=== PATIENT | male | born 1930 | race Caucasian/White ===

== ENCOUNTER 2019-09-25 10:55 | Observation (INO) ==
[2019-09-25] MEDS ORDERED: NS 1000 ML 1,000 ML ONE (11:08)
--- NOTE | 2019-09-25 11:08 | DR.GIBLEED ---
HPI Time Seen Time Seen by Provider: 09/25/19 11:00 Primary Care Physician Primary Care Physician: Gerald in [place] Complaints Chief Complaint Doctors Comments: Pt seen here yesterday and by PCP in [place] the day before. Diagnosed with GI bleed with stable vital signs and H&H. Scheduled for scope next week. brings him back today because multiple bloody stools through the night. Hb 14.2 on 09/23, and 13.8 on 09/24 No vomiting, no syncope. No abdominal pain. Reviewed Nurses Notes Reviewed: Yes Source History Provided: Patient and Significant Other Mode of Arrival Mode of Arrival: Ambulatory Duration Bleeding: Since Onset How lon Duration: Days Quality Vomitus: None Stools: Bright Red Blood History Of: None and Aortic Graft; denies GI Bleed and Current anticoagulant use Prehospital Care:: None Severity Severity: Moderate Number of: 4 Context Onset: Spontaneous Recent Use Of: None Associated Signs and Symptoms Associated Signs and Symptoms: Diarrhea; denies Abdominal Pain PMH PMH Past Medical History: CHF, Coronary Artery Disease, GERD, Hypertension and IN Past Surgical History: Yes Surgical History: AAA Repair, Angioplasty/Stents, CABG/Valve Surgery, Thyroidectomy and Other Family History History of Family Medical Conditions: Yes Family Medical History: Hypertension Social History Does patient currently use any type of tobacco product: No Have you used tobacco products in the last 12 months: No Does any household member use tobacco: No Do you use any recreational Drugs:: No Lives With: Significant Other Lives Where: Home infectious screening In the last 2 months have you had wt loss of >10#?: NO Have you had fever, night sweats or hemotysis?: No Have you traveled outside the country in the last 6 months?: No Isolation: Standard ROS Review of Systems Constitutional: Weakness; negative Chills, Diaphoresis and Fever Respiratoy: No Symptoms Reported; negative Short of Breath and Wheezing Cardiovascular: No Symptoms Reported; negative Chest Pain and Syncope Gastrointestinal/Abdominal: Diarrhea and Other (bloody BMs); negative Abdominal Pain and Vomiting Genitourinary: No Symptoms Reported Neurological: Weakness All Other Systems: Reviewed and Negative PE Vital Signs Vitals: Temperature 97.8 F Pulse Rate [Standing] 86 Pulse Rate [Sitting] 79 Pulse Rate [Lying] 82 Pulse Rate 78 Respiratory Rate 18 Blood Pressure [Left Arm] 108/65 Blood Pressure [Standing] 97/55 Blood Pressure [Sitting] 93/54 Blood Pressure [Lying] 89/56 Blood Pressure 103/61 O2 Sat by Pulse Oximetry 94 General Limitations: No Limitations General Appearance: Alert and In No Apparent Distress Eyes Eye exam: Normal Appearance, EOMI and Other (no pallor); negative Scleral Icterus ENT ENT Exam: Mucous Membranes Moist Respiratory Respiratory Exam: Normal Lung Sounds Bilat Cardiovascular Cardiovascular Exam: Regular Rate and Normal Rhythm Abdominal Exam Abdominal Exam: Normal Inspection, Normal Bowel Sounds and Soft; negative Tenderness and Guarding Rectal Rectal Exam: Deferred Extremities Extremities Exam: Full ROM Neurologic Neurological Exam: Alert and Oriented X3 Psychiatric Psychiatric Exam: Normal Affect and Normal Mood Skin Skin Exam: Warm, Dry and Normal Color DIFFERENTIAL DIAGNOSIS Differential Diagnosis Differential Diagnosis: AE Fistula, Bleeding diathesis, Diverticulosis, Gastritis and PUD ROR Labs Reviewed Laboratory Results Reviewed?: Yes Result Diagrams: 09/25/19 11:38 09/25/19 11:38 Laboratory: WBC 10.3 X10^3/uL (3.6-10.0) H 09/25/19 11:38 RBC 4.17 X10^6/uL (4.7-6.0) L 09/25/19 11:38 Hgb 12.9 g/dL (13.5-18.0) L 09/25/19 11:38 Hct 38.8 % (42.0-54.0) L 09/25/19 11:38 MCV 93.0 fL (80.0-100.0) 09/25/19 11:38 MCH 31.0 pg (27.0-34.0) 09/25/19 11:38 MCHC 33.3 g/dL (33.0-35.0) 09/25/19 11:38 RDW 14.4 % (11.6-16.5) 09/25/19 11:38 Plt Count 151 X10^3/uL (150.0-450.0) 09/25/19 11:38 MPV 8.1 fL (7.4-11.0) 09/25/19 11:38 Neut % (Auto) 77.6 % (42.0-75.0) H 09/25/19 11:38 Lymph % (Auto) 11.8 % (21.0-51.0) L 09/25/19 11:38 Hardin % (Auto) 8.4 % (0.0-13.0) 09/25/19 11:38 Eos % (Auto) 1.5 % (0.9-2.9) 09/25/19 11:38 Baso % (Auto) 0.7 % (0.2-1.0) 09/25/19 11:38 Neut # (Auto) 8.0 x10^3/uL (2.2-4.8) H 09/25/19 11:38 Lymph # (Auto) 1.2 X10^3/uL (1.3-2.9) L 09/25/19 11:38 Hardin # (Auto) 0.9 x10^3/uL (0.3-0.8) H 09/25/19 11:38 Eos # (Auto) 0.2 x10^3/uL (0.0-0.2) 09/25/19 11:38 Baso # (Auto) 0.1 X10^3/uL (0.0-0.1) 09/25/19 11:38 Absolute Nucleated RBC 0.0 /100WBC 09/25/19 11:38 PT 13.9 SECONDS (11.8-14.3) 09/25/19 11:38 INR Target Range - 09/25/19 11:38 INR 1.11 (0.8-1.3) 09/25/19 11:38 APTT 27.0 SECONDS (22.9-36.5) 09/25/19 11:38 PTT Comment - 09/25/19 11:38 Sodium 139 mmol/L (136-145) 09/25/19 11:38 Corrected Sodium TNP 09/25/19 11:38 Potassium 4.9 mmol/L (3.5-5.1) 09/25/19 11:38 Chloride 106 mmol/L (98-107) 09/25/19 11:38 Carbon Dioxide 26.2 mmol/L (21-32) 09/25/19 11:38 BUN 25 mg/dL (7-18) H 09/25/19 11:38 Creatinine 1.23 mg/dL (0.70-1.30) 09/25/19 11:38 Est GFR (MDRD) Af Amer > 60 (>60) 09/25/19 11:38 Est GFR (MDRD) Non-Af 59 (>60) 09/25/19 11:38 Glucose 102 mg/dL (65-99) H 09/25/19 11:38 Calcium 9.0 mg/dL (8.5-10.1) 09/25/19 11:38 Corrected Calcium TNP 09/25/19 11:38 Total Bilirubin 0.50 mg/dL (0.2-1.0) 09/25/19 11:38 AST 25 Units/L (15-37) 09/25/19 11:38 ALT 20 Units/L (12-78) 09/25/19 11:38 Alkaline Phosphatase 66 Units/L (46-116) 09/25/19 11:38 Total Protein 7.3 g/dL (6.4-8.2) 09/25/19 11:38 Albumin 3.7 g/dL (3.4-5.0) 09/25/19 11:38 Globulin 3.6 g/dL (2.5-4.5) 09/25/19 11:38 Albumin/Globulin Ratio 1.0 Ratio (1.1-2.1) L 09/25/19 11:38 Blood Type B POSITIVE 09/25/19 11:38 Antibody Screen Negative 09/25/19 11:38 EKG Rate: 81 Rhythm: NSR Block: None Hypertrophy: None ST: Normal Opioid Opioid Risk Tool Age (Dewayne box if 16-45): No History of Preadolescent Sexual Abuse: No Total: 0 Total Score Risk Category: Low Risk Copyright: Gallo LR predicting aberrant behaviors ADDITIONAL NOTES Additional Notes Additional Notes: Pt is stable and H&H have not dropped very much over 3 days. But due to age (89) and ongoing slow GI bleed, will admit to obs and monitor. Diagnosis: GI bleed
[2019-09-25] MEDS ORDERED: PROTONIX INJ 40 MG VIAL IVP ONE (11:09)
[2019-09-25] MEDS ORDERED: PROTONIX INJ 40 MG VIAL ONE ×2 (11:11→11:12)
[2019-09-25] MEDS ORDERED: NS 100 ML IV 100 ML IV ONE (11:12)
[2019-09-25] MEDS: NS 1000 ML 1,000 ML IV SCH ×2 (11:49→18:24)
[2019-09-25 11:50] LABS: BASOPHILS # (AUTO) 0.1 X10^3/uL (0.0-0.1); BASOPHILS % (AUTO) 0.7 % (0.2-1.0); EOSINOPHILS # (AUTO) 0.2 x10^3/uL (0.0-0.2); EOSINOPHILS % (AUTO) 1.5 % (0.9-2.9); HEMATOCRIT 38.8 % (42.0-54.0); HEMOGLOBIN 12.9 g/dL (13.5-18.0); LYMPHOCYTES # (AUTO) 1.2 X10^3/uL (1.3-2.9); LYMPHOCYTES % (AUTO) 11.8 % (21.0-51.0); MEAN CORPUSCULAR HGB CONC 33.3 g/dL (33.0-35.0); MEAN PLATELET VOLUME 8.1 fL (7.4-11.0); MONOCYTES # (AUTO) 0.9 x10^3/uL (0.3-0.8); MONOCYTES % (AUTO) 8.4 % (0.0-13.0); NEUTROPHILS % (AUTO) 77.6 % (42.0-75.0); PLATELET COUNT 151 X10^3/uL (150.0-450.0); RED BLOOD COUNT 4.17 X10^6/uL (4.7-6.0); RED CELL DISTRIBUTION WIDTH 14.4 % (11.6-16.5); WHITE BLOOD COUNT 10.3 X10^3/uL (3.6-10.0)
[2019-09-25 12:02] LABS: ALANINE AMINOTRANSFERASE 20 Units/L (12-78); ALBUMIN 3.7 g/dL (3.4-5.0); ALKALINE PHOSPHATASE 66 Units/L (46-116); ASPARTATE AMINO TRANSFERASE 25 Units/L (15-37); BLOOD UREA NITROGEN 25 mg/dL (7-18); CARBON DIOXIDE 26.2 mmol/L (21-32); CHLORIDE 106 mmol/L (98-107); CREATININE 1.23 mg/dL (0.70-1.30); SODIUM 139 mmol/L (136-145); TOTAL PROTEIN 7.3 g/dL (6.4-8.2); eGFR NON BLACK RACES 59 (>60)
[2019-09-25] MEDS: PROTONIX INJ 40 MG VIAL 80 MG in NS 100 ML IV 80 ML IV SCH ×2 (12:03→19:17)
[2019-09-25] MEDS: CYTOTEC PO SCH ×3 (14:41→21:09)
[2019-09-25 15:03] VITALS: BMI 28.1
[2019-09-25 19:30] LABS: HEMATOCRIT 36.8 % (42.0-54.0); HEMOGLOBIN 12.3 g/dL (13.5-18.0)
[2019-09-25] MEDS: ULTRAM PO SCH (21:10)
[2019-09-25 23:55] LABS: HEMATOCRIT 34.1 % (42.0-54.0); HEMOGLOBIN 11.6 g/dL (13.5-18.0)
[2019-09-26] MEDS: NS 1000 ML 1,000 ML IV SCH ×3 (02:00→10:40)
[2019-09-26 07:12] LABS: HEMATOCRIT 30.9 % (42.0-54.0); HEMOGLOBIN 10.5 g/dL (13.5-18.0)
[2019-09-26] MEDS: PROTONIX INJ 40 MG VIAL 80 MG in NS 100 ML IV 80 ML IV SCH ×2 (09:00→21:31)
[2019-09-26] MEDS: ALDACTONE TAB 25 MG PO SCH (09:53)
[2019-09-26] MEDS: ULTRAM PO SCH ×2 (09:53→20:46)
[2019-09-26] MEDS: CYTOTEC PO SCH ×2 (09:54→20:46)
[2019-09-26] MEDS: PATIENT'S HOME MEDICATION PO SCH (17:32)
[2019-09-26 17:52] LABS: HEMATOCRIT 33.9 % (42.0-54.0); HEMOGLOBIN 11.3 g/dL (13.5-18.0)
[2019-09-26] MEDS: CARAFATE PO SCH ×2 (18:08→20:46)
[2019-09-26] MEDS: SYNTHROID 50 mcg TAB PO SCH (18:08)
[2019-09-27] MEDS: NS 1000 ML 1,000 ML IV SCH ×4 (00:20→18:21)
[2019-09-27] MEDS: CARAFATE PO SCH ×2 (05:55→11:45)
[2019-09-27 06:28] LABS: BASOPHILS # (AUTO) 0.1 X10^3/uL (0.0-0.1); BASOPHILS % (AUTO) 0.7 % (0.2-1.0); EOSINOPHILS # (AUTO) 0.2 x10^3/uL (0.0-0.2); EOSINOPHILS % (AUTO) 2.4 % (0.9-2.9); HEMATOCRIT 29.9 % (42.0-54.0); HEMOGLOBIN 10.2 g/dL (13.5-18.0); LYMPHOCYTES # (AUTO) 1.2 X10^3/uL (1.3-2.9); LYMPHOCYTES % (AUTO) 14.8 % (21.0-51.0); MEAN CORPUSCULAR HEMOGLOBIN 32.2 pg (27.0-34.0); MEAN CORPUSCULAR HGB CONC 34.3 g/dL (33.0-35.0); MEAN CORPUSCULAR VOLUME 93.8 fL (80.0-100.0); MEAN PLATELET VOLUME 8.1 fL (7.4-11.0); MONOCYTES # (AUTO) 0.7 x10^3/uL (0.3-0.8); NEUTROPHILS # (AUTO) 5.7 x10^3/uL (2.2-4.8); NEUTROPHILS % (AUTO) 73.1 % (42.0-75.0); PLATELET COUNT 117 X10^3/uL (150.0-450.0); RED BLOOD COUNT 3.18 X10^6/uL (4.7-6.0); RED CELL DISTRIBUTION WIDTH 14.3 % (11.6-16.5); WHITE BLOOD COUNT 7.8 X10^3/uL (3.6-10.0)
[2019-09-27 06:38] LABS: ALANINE AMINOTRANSFERASE 18 Units/L (12-78); ALBUMIN 2.8 g/dL (3.4-5.0); ALKALINE PHOSPHATASE 83 Units/L (46-116); ASPARTATE AMINO TRANSFERASE 24 Units/L (15-37); BLOOD UREA NITROGEN 10 mg/dL (7-18); CALCIUM 7.6 mg/dL (8.5-10.1); CARBON DIOXIDE 21.4 mmol/L (21-32); CHLORIDE 111 mmol/L (98-107); COR CA(FOR HYPOALB) 8.6 mg/dL (8.5-10.1); CREATININE 0.92 mg/dL (0.70-1.30); SODIUM 142 mmol/L (136-145); TOTAL PROTEIN 5.5 g/dL (6.4-8.2); eGFR NON BLACK RACES > 60 (>60)
[2019-09-27] MEDS: ULTRAM PO SCH ×2 (09:08→20:54)
[2019-09-27] MEDS: CYTOTEC PO SCH ×2 (09:08→20:54)
[2019-09-27] MEDS: PROTONIX INJ 40 MG VIAL 80 MG in NS 100 ML IV 80 ML IV SCH (10:04)
[2019-09-27] MEDS: ALDACTONE TAB 25 MG PO SCH (12:03)
[2019-09-27] MEDS: PATIENT'S HOME MEDICATION PO SCH (12:03)
[2019-09-27] MEDS: SYNTHROID 50 mcg TAB PO SCH (17:05)
[2019-09-28] MEDS: PROTONIX INJ 40 MG VIAL 80 MG in NS 100 ML IV 80 ML IV SCH ×4 (00:11→23:47)
[2019-09-28] MEDS: NS 1000 ML 1,000 ML IV SCH ×3 (03:00→20:18)
[2019-09-28 06:38] LABS: ALANINE AMINOTRANSFERASE 19 Units/L (12-78); ALBUMIN 2.6 g/dL (3.4-5.0); ALKALINE PHOSPHATASE 44 Units/L (46-116); ASPARTATE AMINO TRANSFERASE 22 Units/L (15-37); BLOOD UREA NITROGEN 6 mg/dL (7-18); CALCIUM 7.3 mg/dL (8.5-10.1); CARBON DIOXIDE 20.9 mmol/L (21-32); CHLORIDE 111 mmol/L (98-107); COR CA(FOR HYPOALB) 8.4 mg/dL (8.5-10.1); CREATININE 0.88 mg/dL (0.70-1.30); SODIUM 141 mmol/L (136-145); TOTAL PROTEIN 5.3 g/dL (6.4-8.2); eGFR NON BLACK RACES > 60 (>60)
[2019-09-28 06:40] LABS: BASOPHILS # (AUTO) 0.1 X10^3/uL (0.0-0.1); BASOPHILS % (AUTO) 0.9 % (0.2-1.0); EOSINOPHILS # (AUTO) 0.2 x10^3/uL (0.0-0.2); HEMATOCRIT 28.6 % (42.0-54.0); HEMOGLOBIN 9.9 g/dL (13.5-18.0); LYMPHOCYTES # (AUTO) 0.8 X10^3/uL (1.3-2.9); LYMPHOCYTES % (AUTO) 9.7 % (21.0-51.0); MEAN CORPUSCULAR HGB CONC 34.6 g/dL (33.0-35.0); MEAN CORPUSCULAR VOLUME 92.3 fL (80.0-100.0); MONOCYTES # (AUTO) 0.8 x10^3/uL (0.3-0.8); MONOCYTES % (AUTO) 9.5 % (0.0-13.0); NEUTROPHILS # (AUTO) 6.3 x10^3/uL (2.2-4.8); NEUTROPHILS % (AUTO) 77.9 % (42.0-75.0); PLATELET COUNT 124 X10^3/uL (150.0-450.0); RED CELL DISTRIBUTION WIDTH 14.3 % (11.6-16.5); WHITE BLOOD COUNT 8.1 X10^3/uL (3.6-10.0)
[2019-09-28] MEDS ORDERED: NS 500 ML IV 500 ML IV ONE (09:56)
[2019-09-28] MEDS ORDERED: XYLOCAINE-MPF 1% ONE (10:10)
[2019-09-28] MEDS ORDERED: DIPRIVAN VIAL 20 ML ONE (10:10)
[2019-09-28] MEDS ORDERED: EPHEDRINE SULFATE INJ ONE (10:23)
[2019-09-28] MEDS: ULTRAM PO SCH ×2 (12:02→20:18)
[2019-09-28] MEDS: ALDACTONE TAB 25 MG PO SCH (12:02)
[2019-09-28] MEDS: CYTOTEC PO SCH ×2 (12:02→20:18)
[2019-09-28] MEDS: PATIENT'S HOME MEDICATION PO SCH (12:06)
[2019-09-28] MEDS ORDERED: XYLOCAINE 1 % (PLAIN) ONE (14:35)
[2019-09-28] MEDS ORDERED: DIPRIVAN VIAL ONE (14:35)
[2019-09-28] MEDS: SYNTHROID 50 mcg TAB PO SCH (15:00)
[2019-09-28] MEDS ORDERED: STERILE WATER IRRIGATION IR ONE (15:37)
[2019-09-28] MEDS ORDERED: ZOFRAN INJ 4 MG VIAL IVP PRN (16:08)
[2019-09-28] MEDS ORDERED: ZOFRAN INJ 4 MG VIAL ONE (16:15)
[2019-09-28] MEDS: CARAFATE PO SCH ×2 (17:46→20:18)
[2019-09-29] MEDS: PROTONIX INJ 40 MG VIAL 80 MG in NS 100 ML IV 80 ML IV SCH (05:18)
[2019-09-29] MEDS: CARAFATE PO SCH (05:40)
[2019-09-29] MEDS: NS 1000 ML 1,000 ML IV SCH (05:40)
[2019-09-29 06:10] LABS: BASOPHILS % (AUTO) 0.4 % (0.2-1.0); EOSINOPHILS # (AUTO) 0.1 x10^3/uL (0.0-0.2); EOSINOPHILS % (AUTO) 1.1 % (0.9-2.9); HEMATOCRIT 29.7 % (42.0-54.0); HEMOGLOBIN 10.2 g/dL (13.5-18.0); LYMPHOCYTES % (AUTO) 9.9 % (21.0-51.0); MEAN CORPUSCULAR HEMOGLOBIN 31.9 pg (27.0-34.0); MEAN CORPUSCULAR HGB CONC 34.4 g/dL (33.0-35.0); MEAN CORPUSCULAR VOLUME 92.6 fL (80.0-100.0); MONOCYTES # (AUTO) 0.9 x10^3/uL (0.3-0.8); MONOCYTES % (AUTO) 9.1 % (0.0-13.0); NEUTROPHILS # (AUTO) 8.3 x10^3/uL (2.2-4.8); NEUTROPHILS % (AUTO) 79.5 % (42.0-75.0); PLATELET COUNT 127 X10^3/uL (150.0-450.0); RED BLOOD COUNT 3.21 X10^6/uL (4.7-6.0); RED CELL DISTRIBUTION WIDTH 14.3 % (11.6-16.5); WHITE BLOOD COUNT 10.4 X10^3/uL (3.6-10.0)
[2019-09-29 06:16] LABS: ALANINE AMINOTRANSFERASE 16 Units/L (12-78); ALBUMIN 2.6 g/dL (3.4-5.0); ALKALINE PHOSPHATASE 44 Units/L (46-116); ASPARTATE AMINO TRANSFERASE 25 Units/L (15-37); BLOOD UREA NITROGEN 6 mg/dL (7-18); CALCIUM 7.5 mg/dL (8.5-10.1); CARBON DIOXIDE 20.1 mmol/L (21-32); CHLORIDE 109 mmol/L (98-107); COR CA(FOR HYPOALB) 8.6 mg/dL (8.5-10.1); CREATININE 0.95 mg/dL (0.70-1.30); SODIUM 139 mmol/L (136-145); TOTAL PROTEIN 5.7 g/dL (6.4-8.2); eGFR NON BLACK RACES > 60 (>60)
[2019-09-29] MEDS: CYTOTEC PO SCH (08:30)
[2019-09-29] MEDS: ALDACTONE TAB 25 MG PO SCH (08:30)
[2019-09-29] MEDS: PATIENT'S HOME MEDICATION PO SCH (08:30)
[2019-09-29 09:22] VITALS: BP 120/77
[2019-09-29] MEDS: ULTRAM PO SCH (10:49)
== END 2019-09-29 10:15 | disposition home or self-care (01) ==
LOC: ER 10:55 → MED/SURG 10:55
PROVIDERS: ADMIT Obstetrics & Gynecology Obstetrics; ATTEND Obstetrics & Gynecology Obstetrics
DX: R94.31 Abnormal electrocardiogram [ECG] [EKG]; K31.7 Polyp of stomach and duodenum; K92.2 Gastrointestinal hemorrhage, unspecified; K44.9 Diaphragmatic hernia without obstruction or gangrene
CPT/HCPCS: 36415; 80053; 85014; 85018; 85025; 85610; 85730; 86850; 86900; 86901; 86922; 93005; 96360; 96361; 96365; 96367; 96374; 96375; 99100; 99284; A4217; A4222; C9113; G0378; J2405; J2704; J3490; J7030; J7050; S0191